=== PATIENT | female | born 1970 | race Caucasian/White ===

== ENCOUNTER 2019-08-26 13:15 | Emergency (ER) | payer BC ==
[~2019-08-26] VITALS: Ht 167.6 cm; Wt 95.7 kg
[2019-08-26] MEDS ORDERED: PREDNISONE20 M1 PO (16:35)
[2019-08-26] MEDS ORDERED: ORPHENADRINE C100 MG PO (16:35)
[2019-08-26] MEDS ORDERED: KETO10TA2 PO (16:35)
== END 2019-08-26 16:46 | disposition home or self-care (01) ==
LOC: ER 13:15
DX: M25.552 Pain in left hip (principal); M54.5 Low back pain